=== PATIENT | male | born 1980 | race Caucasian/White ===

== ENCOUNTER 2020-10-02 17:40 | Emergency (ER) | payer MEDICAID ==
[~2020-10-02] VITALS: Ht 175.3 cm; Wt 97.7 kg
[~2020-10-02 17:40] MED LIST: CLIN-97 PO
[2020-10-02 17:48] VITALS: BP 116/87
== END 2020-10-02 18:53 | disposition home or self-care (01) ==
LOC: ER 17:40
DX: M25.571 Pain in right ankle and joints of right foot (principal); M25.471 Effusion, right ankle; Z79.2 Long term (current) use of antibiotics
CPT/HCPCS: 29515; 73610; 99283